=== PATIENT | male | born 1990 | race Caucasian/White ===

== ENCOUNTER 2025-02-07 14:24 | Emergency (ER) | payer MEDICAID, OTHER ==
[~2025-02-07] VITALS: Ht 175.3 cm; Wt 105.0 kg
[2025-02-07 14:30] VITALS: BP 148/96; TEMP 37
[2025-02-07 14:37] VITALS: O2SAT 100
[2025-02-07 16:45] VITALS: PULSE 84; RESP 16; O2SAT 97
[2025-02-07] MEDS: IPRATROPIUM BROMIDE (0.02%) 0.5MG/2.5ML NEB HHN ONE (16:45)
[2025-02-07] MEDS: ALBUTEROL (0.083%) 2.5MG/3ML NEB HHN ONE (16:45)
[2025-02-07] MEDS: DEXAMETHASONE 4MG TABLET PO ONE (17:03)
[2025-02-07] MEDS ORDERED: ALBU90AE INH (17:09)
[2025-02-07] MEDS ORDERED: FLUT15.844 BOTHNSTRLS (17:10)
[2025-02-07] MEDS ORDERED: GUAI-793 MT (17:33)
== END 2025-02-07 17:40 | disposition home or self-care (01) ==
LOC: ER 14:24
DX: R05.9 Cough, unspecified (principal); F84.0 Autistic disorder
CPT/HCPCS: 71045; 94640; 99283; J8540; Z7610 ×3; 94070; 94664